=== PATIENT | female | born 2000 | race African-American/Black ===

== ENCOUNTER 2022-09-08 15:26 | Emergency (ER) | payer MEDICAID, OTHER ==
[~2022-09-08] VITALS: Ht 172.7 cm; Wt 87.0 kg
[2022-09-08 15:35] VITALS: BP 132/77
[2022-09-08] MEDS ORDERED: ACETAMINOPHEN 325MG TABLET PO ONE (16:15)
[2022-09-08] MEDS ORDERED: TETANUS, DIPHTHERIA, PERTUSSIS VAC/PF 0.5ML (>10YR OLD) IM ONE (16:15)
[2022-09-08] MEDS ORDERED: IBUP-2028 MT (18:13)
[2022-09-08] MEDS ORDERED: AMOX1TAB16 MT (18:14)
== END 2022-09-08 18:31 | disposition home or self-care (01) ==
LOC: ER 15:26
DX: M25.512 Pain in left shoulder (principal); Y04.0XXA Assault by unarmed brawl or fight, initial encounter; Y93.89 Activity, other specified; Y92.89 Other specified places as the place of occurrence of the external cause; Y99.8 Other external cause status
CPT/HCPCS: 73030; 73090; 81025; 90471; 90715; 99284; Z7610